=== PATIENT | female | born 2005 | race Caucasian/White ===

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

== ENCOUNTER → 2024-09-16 | Outpatient (REF) | payer OTHER ==
[2024-09-16 17:44] LABS: PERCENT SATURATION 31.4 % (13.2-45.0)
[2024-09-16 17:46] LABS: FERRITIN 57.9 NG/ML (7.3-270.7)
[2024-09-19 18:02] LABS: HOMOCYST(E)INE SERUM 18.4 umol/L (<10.4)
[2024-09-20 00:17] LABS: CARDIOLIPIN IGA ANTIBODY < 2.0 APL-U/mL (<20.0); CARDIOLIPIN IGG ANTIBODY < 2.0 GPL-U/mL (<20.0); CARDIOLIPIN IGM ANTIBODY < 2.0 MPL-U/mL (<20.0)
== END ==
LOC: M LAB REF 16:12
PROVIDERS: ATTEND Internal Medicine
DX: D50.9 Iron deficiency anemia, unspecified (principal); Z86.718 Personal history of other venous thrombosis and embolism